=== PATIENT | female | born 1985 | race Caucasian/White ===

== ENCOUNTER 2018-04-20 21:34 | Emergency (ER) | payer OTHER ==
[~2018-04-20] VITALS: Ht 165.1 cm; Wt 122.5 kg
[2018-04-20 22:03] LABS: ABSOLUTE NEUTROPHILS 7.5 thou/uL (1.4-8.2); BASOPHILS 0.6 % (0.0-2.0); EOSINOPHILS 2.2 % (0.0-3.0); HEMATOCRIT 42.8 % (37.0-47.0); MCV 88.5 fL (80.0-100.0); MONOCYTES 7.6 % (1.0-8.0); PLATELET COUNT 374 thou/uL (150-400); POLYS 61.6 % (36.0-66.0); RBC 4.84 mil/uL (4.20-5.00); RDW 13.8 % (10.5-14.5); WBC 12.2 thou/uL (4.0-11.0)
[2018-04-20 22:09] LABS: ANION GAP 13 mmol/L (7-16); BUN 15 mg/dL (7-18); CALCIUM 10.9 mg/dL (8.5-10.1); CHLORIDE 102 mmol/L (98-107); CO2 23 mmol/L (21-32); GLUCOSE 112 mg/dL (74-106); POTASSIUM 3.2 mmol/L (3.5-5.1); SODIUM 138 mmol/L (136-145)
[2018-04-20 22:18] LABS: LIPASE 153 U/L (73-393); SGOT 21 U/L (15-37); SGPT 29 U/L (30-65); TOTAL BILIRUBIN 0.3 mg/dL (<0.1-1.0); TOTAL PROTEIN 8.2 g/dL (6.4-8.2); TROPONIN-I <0.06 ng/mL (<0.06)
[2018-04-21 01:04] LABS: URINE BILIRUBIN NEGATIVE (Negative); URINE BLOOD 3+ (Negative); URINE CLARITY CLEAR; URINE COLOR YELLOW; URINE GLUCOSE-RANDOM* NEGATIVE (Negative); URINE KETONES NEGATIVE (Negative); URINE LEUKOCYTES-REFLEX NEGATIVE (Negative); URINE NITRITE-REFLEX NEGATIVE (Negative); URINE PROTEIN (DIPSTICK) NEGATIVE (Negative); URINE UROBILINOGEN 0.2 E.U./dl (0.2-1.0)
[2018-04-21 01:16] LABS: BACTERIA-REFLEX 1-9 Few /HPF (None Seen); CALCIUM OXALATE 4-10 Moderate /LPF (None Seen); CASTS None Seen /LPF (None Seen); MUCUS 0-3 Light strn/LPF (None Seen); SQUAMOUS 0-3 Few /LPF (0-3); URINE RBC 3-10 Few /HPF (0-2); URINE WBC-REFLEX 0-5 Rare /HPF (0-5)
[2018-04-21] MEDS ORDERED: NORCO 5-325 TA1 EACH PO (02:00)
[2018-04-21 02:06] VITALS: BP 116/61
--- NOTE | 2018-04-21 19:58 | EKG ---
[place] [address] [facility] [place] [address] ELECTROCARDIOGRAM REPORT Name: NELI CLINE [id number] ������������������ Admission: 04/20/18 ������������������ Attend Phys: Discharge: 04/21/18 ������������������ Date of : 89 Report #: [id number] ����������������������������������������������������������������� [id number] THIS REPORT FOR: //name// [facility] ED Test Date: 2018-04-20 Test Time: 22:02:38 Pat Name: NELI CLINE Department: Room: Gender: F Bulk Loader: tila : 1985 Requested By: Dalton Reed Order Number: [id number] MD: Bryn Villalobos Measurements Intervals [place] Rate: 71 P: 49 IA: 168 QRS: 10 QRSD: 100 T: 30 QT: 366 QTc: 398 Interpretive Statements Sinus rhythm Baseline wander in lead(s) II,III,aVR,aVL,aVF,V1,V2,V3,V5,V6 Early transition No previous ECG available for comparison Electronically Signed On 04-21-2018 19:57:48 HOT MILL SHEAR[employer] by Bryn Villalobos [email or web address] ��������������������������������������������� <ELECTRONICALLY SIGNED> ���������������������������������������� By: Bryn Villalobos MD ��������������������������������������������� 04/21/181956 01 01 Bryn Villalobos MD /EPI
== END 2018-04-21 02:06 | disposition home or self-care (01) ==
LOC: ER 21:34
PROVIDERS: Emergency Medicine
DX: N20.0 Calculus of kidney (principal); R11.2 Nausea with vomiting, unspecified

== ENCOUNTER 2018-05-18 21:22 | Emergency (ER) | payer OTHER ==
[~2018-05-18] VITALS: Ht 165.1 cm; Wt 115.7 kg
[~2018-05-18 21:22] MED LIST: NORCO 5-325 TA1 EACH PO
[2018-05-18 21:45] LABS: URINE BILIRUBIN NEGATIVE (Negative); URINE BLOOD 3+ (Negative); URINE CLARITY CLOUDY; URINE COLOR YELLOW; URINE GLUCOSE-RANDOM* NEGATIVE (Negative); URINE KETONES NEGATIVE (Negative); URINE LEUKOCYTES-REFLEX TRACE (Negative); URINE NITRITE-REFLEX NEGATIVE (Negative); URINE PROTEIN (DIPSTICK) 2+ (Negative); URINE SPECIFIC GRAVITY >= 1.030 (1.005-1.035)
[2018-05-18] MEDS ORDERED: BUSPIRONE HCL10 MG PO (21:51)
[2018-05-18 21:53] LABS: CASTS None Seen /LPF (None Seen); CRYSTALS None Seen /LPF (None Seen); MUCUS 0-3 Light strn/LPF (None Seen); SQUAMOUS 0-3 Few /LPF (0-3); URINE RBC >20 Many /HPF (0-2); URINE WBC-REFLEX 6-15 Few /HPF (0-5)
[2018-05-19 00:14] LABS: ABSOLUTE NEUTROPHILS 8.4 thou/uL (1.4-8.2); BASOPHILS 0.4 % (0.0-2.0); EOSINOPHILS 1.3 % (0.0-3.0); HEMATOCRIT 39.9 % (37.0-47.0); HEMOGLOBIN 13.7 gm/dL (12.0-15.0); MCH 30.5 pg (26.0-34.0); MCHC 34.3 g/dL (28.0-37.0); MONOCYTES 8.4 % (1.0-8.0); PLATELET COUNT 326 thou/uL (150-400); POLYS 68.9 % (36.0-66.0); RBC 4.48 mil/uL (4.20-5.00); RDW 13.7 % (10.5-14.5); WBC 12.2 thou/uL (4.0-11.0)
[2018-05-19 00:16] LABS: CALCIUM 9.9 mg/dL (8.5-10.1); CREATININE 0.9 mg/dL (0.6-1.0); POTASSIUM 3.9 mmol/L (3.5-5.1)
[2018-05-19] MEDS ORDERED: KEFLEX500 M1 PO (01:05)
[2018-05-19] MEDS ORDERED: IBUPROFEN 800800 M1 PO (01:05)
[2018-05-19] MEDS ORDERED: ZOFRAN ODT4 MG PO (01:09)
[2018-05-19 01:35] VITALS: BP 125/95
== END 2018-05-19 01:47 | disposition home or self-care (01) ==
LOC: ER 21:22
PROVIDERS: Emergency Medicine; Nurse Practitioner Family
DX: N20.0 Calculus of kidney (principal)

== ENCOUNTER 2018-06-29 23:31 | Inpatient (IN) | payer OTHER ==
[~2018-06-29] VITALS: Ht 165.1 cm; Wt 111.8 kg
[~2018-06-29 23:31] MED LIST changes: +BUSPIRONE HCL10 MG PO; +IBUPROFEN 800800 M1 PO; +KEFLEX500 M1 PO; +ZOFRAN ODT4 MG PO
[2018-06-29 23:41] VITALS: BP 125/76
--- NOTE | 2018-06-29 23:50 | NUR ---
PATIENT STATES HAS ALOT GOING ON. STATES JUST STARTED A NEW JOB, AND WAS SUPPOSED TO BE PAID SUNDAY-DIDNT HAPPEN
[2018-06-29] MEDS ORDERED: SERTRALINE HCL50 MG PO (23:56)
[2018-06-30] VITALS (7 sets, daily range): BP systolic 120–170; BP diastolic 71–128
[2018-06-30 00:34] LABS: ICTOTEST (BILI CONFIRMATORY) Positive (Negative); URINE BILIRUBIN 2+ (Negative); URINE BLOOD 3+ (Negative); URINE CLARITY SL CLOUDY; URINE COLOR BROWN; URINE GLUCOSE-RANDOM* NEGATIVE (Negative); URINE KETONES 1+ (Negative); URINE LEUKOCYTES-REFLEX 2+ (Negative); URINE NITRITE-REFLEX NEGATIVE (Negative); URINE PROTEIN (DIPSTICK) 2+ (Negative); URINE SPECIFIC GRAVITY >= 1.030 (1.005-1.035)
[2018-06-30 00:36] LABS: AMP/METHAMP Negative (Negative); BARBITURATES Negative (Negative); BENZODIAZEPINES POSITIVE (Negative); COCAINE Negative (Negative); METHADONE Negative (Negative); OPIATES Negative (Negative); PCP Negative (Negative)
[2018-06-30 00:40] LABS: ABSOLUTE NEUTROPHILS 15.7 thou/uL (1.4-8.2); BASOPHILS 0.2 % (0.0-2.0); EOSINOPHILS 0.2 % (0.0-3.0); HEMATOCRIT 45.7 % (37.0-47.0); HEMOGLOBIN 15.1 gm/dL (12.0-15.0); LYMPHOCYTES 7.5 % (24.0-44.0); MCH 30.1 pg (26.0-34.0); MCHC 33.1 g/dL (28.0-37.0); MONOCYTES 7.7 % (1.0-8.0); PLATELET COUNT 332 thou/uL (150-400); POLYS 84.4 % (36.0-66.0); RBC 5.02 mil/uL (4.20-5.00); RDW 13.8 % (10.5-14.5); WBC 18.6 thou/uL (4.0-11.0)
[2018-06-30 00:42] LABS: HYALINE CASTS 0-3 Few /LPF (None Seen); MUCUS 4-6 Moderate strn/LPF (None Seen); SQUAMOUS 4-10 Moderate /LPF (0-3)
[2018-06-30 00:43] LABS: BACTERIA-REFLEX 1-9 Few /HPF (None Seen); CRYSTALS None Seen /LPF (None Seen); URINE RBC >20 Many /HPF (0-2); YEAST-REFLEX Present (None Seen)
[2018-06-30 00:58] LABS: ALBUMIN 5.2 g/dL (3.4-5.0); ANION GAP 18 mmol/L (7-16); BUN 26 mg/dL (7-18); CHLORIDE 103 mmol/L (98-107); CO2 18 mmol/L (21-32); CREATININE 1.4 mg/dL (0.6-1.0); GLUCOSE 104 mg/dL (74-106); POTASSIUM 3.4 mmol/L (3.5-5.1); SALICYLATE 5.2 mg/dL (2.8-20.0); SGOT 96 U/L (15-37); SGPT 59 U/L (30-65); SODIUM 139 mmol/L (136-145); TOTAL BILIRUBIN 1.2 mg/dL (<0.1-1.0); TOTAL PROTEIN 9.1 g/dL (6.4-8.2)
[2018-06-30 01:01] LABS: CALCIUM 12.4 mg/dL (8.5-10.1)
--- NOTE | 2018-06-30 01:02 | NUR ---
CRITICAL LAB RECEIVED OF CA=12.4, PHYSICIAN NOTIFIED
[2018-06-30 01:31] LABS: MAGNESIUM 1.9 mg/dL (1.8-2.4); PHOSPHORUS 2.7 mg/dL (2.5-4.9)
[2018-06-30 05:02] LABS: CALCIUM 11.4 mg/dL (8.5-10.1); CREATININE 1.2 mg/dL (0.6-1.0); POTASSIUM 3.4 mmol/L (3.5-5.1)
--- NOTE | 2018-06-30 07:56 | NUR ---
ASSUMED CARE OF PT WITH ADMIT TO THE UNIT. ABLE TO ANSWER ORIENTATION QUESTIONS BUT WOULD MAKE UNRELATED COMMENTS DURING DISCUSSIONS. DENIED HEARING/SEEING THINGS THAT WEREN'T THERE BUT WAS LOOKING AT/TALKING TO THINGS NOT THERE. VS HAVE BEEN STABLE. SITTER AT BEDSIDE. SLOW PROGRESSION TOWARDS POC GOALS THIS SHIFT.
[2018-06-30 11:09] LABS: CALCIUM IONIZED* 6.3 mg/dL (4.5-5.6)
--- NOTE | 2018-06-30 19:52 | NUR ---
ASSUMED PATIENT CARE AT 0715. PATIENT HAS BEEN HALLUCINATING ON AND OFF TODAY. 1:1. PSYCH ROUNDED ON PATIENT TODAY AND ORDERED PRN MEDICATIONS. ENDO ALSO ROUNDED ON PATIENT. CALCIUM REDRAW IN THE MORNING. PATIENT SHOWERED TODAY WITH SITTER. MULTIPLE SCABS AND BRUISES ALL OVER. PATIENT STATES THAT THEY HAVE BEEN LIVING IN THEIR CARE SINCE . PATIENT BECAME AGITATED AT SHIFT CHANGE ABOUT THEIR PHONE BEING LOST. PATIENT DID NOT COME IN WITH PHONE. OLANZAPINE IM GIVEN. IV INFILTRATED, IV TEAM TO REPLACE.
--- NOTE | 2018-06-30 22:17 | NUR ---
Patient agitated at start of shift. Agitated about location of car keys, car, cell phone and money. Keeps dislaying AH and VH. Paranoia present believing all noises are a person Belen and Ben talking about her. Patient ran into the [facility] x2 believing that there is a man with a gun in her room. Security called x2 to help de-escalate patient. Patient started to calm down around 2100, sitting in chair, talking to 1:1 sitter, apologetic, watching TV and ate 25% of dinner. Multiple bruises, scars and scratches visible to bilateral upper and lower extremities. IV to left forearm is positional and is propped on pillow at this time with IV fluids running. Patient c/o pain to abdomen and nausea after eating and requested PRN pain and nausea medication. Those were provided per MD orders. Patient resting with eyes closed in recliner at this time.
[2018-07-01 04:10] LABS: CALCIUM 11.4 mg/dL (8.5-10.1); CREATININE 1.5 mg/dL (0.6-1.0); HEMATOCRIT 40.4 % (37.0-47.0); HEMOGLOBIN 13.8 gm/dL (12.0-15.0); MAGNESIUM 1.7 mg/dL (1.8-2.4); MCH 30.6 pg (26.0-34.0); MCHC 34.2 g/dL (28.0-37.0); MCV 89.3 fL (80.0-100.0); RBC 4.52 mil/uL (4.20-5.00); RDW 13.5 % (10.5-14.5); WBC 17.9 thou/uL (4.0-11.0)
[2018-07-01 04:13] LABS: POTASSIUM 2.6 mmol/L (3.5-5.1)
[2018-07-01 04:50] VITALS: BP 162/93
--- NOTE | 2018-07-01 04:52 | NUR ---
Patient has been resting quietly since approximately 2230. Labs drawn this AM. Critical lab results received K+ 2.6. notified. Order obtained to provide KCL 20meq every hour x3 doses; repeat K+ level at 1045; Mag Ox 400 x1 now. Patient provided medication, took well whole. Vital signs assessed. Patient is going back to sleep with no s/s of agitation, hallucinations, or anxiety at this time.
--- NOTE | 2018-07-01 06:43 | NUR ---
Patient continues to sleep well in chair per her request. No s/s of hallucinations observed. Patient taking medications whole without difficulty. Patient declines needing to use the bathroom. Resident has not voided over the last 12 hours. Bladder scan completed. Shows 244cc in bladder at this time. Will report to next shift to monitor urinary output. Patient has been taking in oral fluids and IV fluids over the last 12 hours.
[2018-07-01 06:51] VITALS: BP 139/88
--- NOTE | 2018-07-01 12:55 | HC ---
[facility] [place] [address] CONSULTATION Name: NELI CLINE Room #: 354-P ADM IN M.R.#: [id number] Admission: 06/30/18 ������������������ Attend Phys: Marco Mcgill MD Discharge: ������������������ Date of : 89 Report #: [id number] THIS REPORT FOR: //name// CC: SANDEEP physician/PCP Kun Martin DATE OF SERVICE: 06/30/2018 ENDOCRINE CONSULTATION LOCATION: Room 354. Patient of Dr. Martin. SUBJECTIVE: One of multiple admissions for this 32-year-old white female with a variety of medical and psychiatric problems most of which will not be addressed by this consultation. Historically, the patient states she was diagnosed several years ago with hypercalcemia. She has a personal history of multiple renal calculi. She also has a positive family history of hypercalcemia and renal calculi in her mother, but no other known family members. There is no diagnostic information regarding her mother's hypercalcemia or other disorders. The patient has apparently had a low level of vitamin D in the past. It is not clear whether she has ever received vitamin D replacement. There is no history of a parathyroid ultrasound or sestamibi scan in the past. The patient has some limited information regarding parathyroid disease, hypercalcemia and parathyroid adenoma much of which is faulty. She is on a variety of psychotropic medications as per chart. Otherwise, she is unable to provide any historical information regarding her calcium disease or its prior evaluation. OBJECTIVE: LABORATORY DATA: Ionized calcium 6.3. Vitamin D and intact PTH are both pending. Serum calcium 11.5, creatinine 1.3, phosphorus 2.7. PHYSICAL EXAMINATION: GENERAL: Well-nourished, well-developed, obese 32-year-old white female, in no acute distress. The patient makes poor eye contact and her eyes do not focus symmetrically. She appears oriented x 3, but offers limited physical information other than very pale and doughy skin and the exogenous obesity, which is located both centrally and peripherally. The physical examination is essentially noncontributory and as per prior records. ASSESSMENT: Hypercalcemia, most likely due to hyperparathyroidism, although data is not complete at this time. This is particularly likely given the positive family history of her first-degree family member who also had hypercalcemia and renal calculi, but about whom further information is not [address] [address] CONSULTATION Name: NELI CLINE Room #: 354-P [facility] IN M.R.#: [id number] Admission: 06/30/18 ������������������ Attend Phys: Marco Mcgill MD Discharge: ������������������ Date of : 89 Report #: [id number] available. There is not a significant family history such as might be expected with multiple endocrine neoplasia syndromes. PLAN: 1. We will attempt to hydrate. The patient is already on furosemide, which would help diurese serum calcium. The patient will probably need supplementation with high dose vitamin D for loading followed by chronic daily appropriate replacement at approximately 2000 units of vitamin D3 per day. 2. We will order a sestamibi scan. If this is positive, the patient will need to be presented with the clinical data and allow her to make, if possible, an appropriate clinical decision regarding possible surgical resection. Hopefully, this could be done endoscopically as the patient is severely fearful of any type of major neck surgery at this time. Thank you very much for this consultation. I will continue to follow the patient with you for evaluation of hypercalcemia and endocrine disease. ��������������������������������������������� <ELECTRONICALLY SIGNED> ���������������������������������������� By: Levi Bobo MD ��������������������������������������������� 07/01/18 1255 1427 0127 Levi Bobo MD /nt
[2018-07-01 13:21] VITALS: BP 124/85
[2018-07-01 13:24] LABS: CALCIUM 11.4 mg/dL (8.5-10.1); CREATININE 1.5 mg/dL (0.6-1.0); POTASSIUM 3.1 mmol/L (3.5-5.1)
[2018-07-01 13:27] LABS: CALCIUM 11.7 mg/dL (8.5-10.1); CREATININE 1.5 mg/dL (0.6-1.0)
[2018-07-01 16:17] VITALS: BP 130/68
--- NOTE | 2018-07-01 17:16 | HC ---
[facility] [place] [address] CONSULTATION Name: NELI CLINE Room #: 354-P ADM IN M.R.#: [id number] Admission: 06/30/18 ������������������ Attend Phys: Marco Mcgill MD Discharge: ������������������ Date of : 89 Report #: [id number] THIS REPORT FOR: //name// CC: SANDEEP physician/PCP Kun Martin DATE OF SERVICE: 06/30/2018 CHIEF COMPLAINT: Altered mental status. HISTORY OF PRESENT ILLNESS: The patient is at least able to converse now, unable to provide a history. She says that she went to her physician, outpatient psychiatrist placed her on Zoloft. The patient at this point is irritable, angry, upset easily. Thought process is perseverative and rapid in thoughts. Thought content denies, suicidal, homicidal ideation at this point, but she also was somewhat labile with me and she said that has been markedly labile recently. She denies danger to herself or others, but again I would leave the 1:1 at least for today. The patient has been diagnosed with borderline personality disorder as well. She says the cuts on her hand are due to the poor coping styles and strategy. The patient is again not agitated. She is relatively calm except for the outburst with me, but there is some lability there that would be somewhat unpredictable, so as to keep the 1:1 sitter would be advised. PAST PSYCHIATRIC HISTORY: Bipolar disorder. MEDICAL HISTORY: She has a BMI of 41. She has elevated calcium, which is somewhat chronic. She denies drug use except for marijuana. She says that she is given Ativan p.r.n. as an outpatient. She is no longer on Seroquel, she used to be on Seroquel. She has been living in her car. She has minimal support from family. FAMILY PSYCHIATRIC HISTORY: Bipolar disorder, possibly in her mother. MENTAL STATUS EXAMINATION: female. She has cuts on her arms. She is loud. She is intrusive, angry, upset. Thought process, perseverative. Thought content, denies suicidal or homicidal ideation now. No delusions or perceptual disturbances, but she has confusion. She was misunderstanding that the 1:1 was possibly with her at a different location. Her affect is wide ranging and can be somewhat intense. Insight and judgment is improving but limited still. ASSETS: She has some understanding of her illness and willing to take medications. LIABILITIES: Severity of illness. [facility] [address] [place] [address] CONSULTATION Name: NELI CLINE Room #: 354-P [facility] IN M.R.#: [id number] Admission: 06/30/18 ������������������ Attend Phys: Marco Mcgill MD Discharge: ������������������ Date of : 89 Report #: [id number] IMPRESSION: AXIS I: Bipolar type 2 disorder. AXIS II: Borderline personality disorder. AXIS III: As above. AXIS IV: Moderate. AXIS V: Global Assessment Global Assessment function currently 50%. PLAN: Continue with the 1:1 for now, we will use Neurontin, even though she has slightly elevated creatinine level due to low dose Neurontin to see if that helps stabilize her mood and avoid Zoloft, which at this point might potentially to the hypomania, keep the 1:1 today and we will reevaluate where she had tomorrow and consider alternative treatments if necessary such as antipsychotics, but we will add a p.r.n. Zyprexa. Jules was somewhat successful. Thank you for the consultation. If you have any questions, give us call. ��������������������������������������������� <ELECTRONICALLY SIGNED> ���������������������������������������� By: Sandra Guthrie MD ��������������������������������������������� 07/01/18 1716 1349 0052 Veto Merlos MD /nt
--- NOTE | 2018-07-01 17:53 | NUR ---
ASSUMED PATIENT CARE AT 0715. PATIENT MUCH CALMER TODAY THAN YESTERDAY. PATIENT SLEEPING MOST OF THE DAY. 1:[address] PATIENT STILL HAVING VISUAL HALLUCINATIONS. K+ LOW ON REDRAW. K+ REPLACED. MORE ANXIOUS IN THE EVENING.
[2018-07-01 20:10] VITALS: BP 137/87
[2018-07-02] VITALS (7 sets, daily range): BP systolic 100–139; BP diastolic 69–91
[2018-07-02 02:05] LABS: 25-HYDROXY TOTAL 8.7 ng/mL (30.0-100.0)
[2018-07-02 06:03] LABS: HEMATOCRIT 39.4 % (37.0-47.0); HEMOGLOBIN 13.1 gm/dL (12.0-15.0); MCHC 33.3 g/dL (28.0-37.0); RBC 4.37 mil/uL (4.20-5.00); RDW 13.8 % (10.5-14.5)
--- NOTE | 2018-07-02 06:05 | NUR ---
Patient with sitter all shift. Patient stated at start of shift that she gets scared because she sometimes sees things that she knows isn't real. This RN reassured her that [facility] working with her to figure out why and slow the episodes. Patient has slept through the night and gotten up standby to the toilet and back to bed. Environment checked for safety. Patient making partial progress toward plan of care at this time.
[2018-07-02 06:20] LABS: CREATININE 1.3 mg/dL (0.6-1.0); MAGNESIUM 2.2 mg/dL (1.8-2.4); POTASSIUM 3.6 mmol/L (3.5-5.1)
--- NOTE | 2018-07-02 18:16 | NUR ---
ASSUMED PATIENT CARE AT 0715. PATIENT WOKEN BY NURSE TO BE TAKEN TO PARATHYROID SPECT SCAN, SEE RESULTS. THIS EVENING PATIENT STATED THEY HAVE NOT HAD HALLUCINATIONS TODAY BUT DID LAST NIGHT. PATIENT HAS BEEN CALM ALL DAY. PATIENT EXPRESSED FEELING EMOTIONAL AND STATED THEY WOULD LIKE TO TALK TO THEIR AUNT OR GRANDMOTHER BUT DIDN'T WANT TO BOTHER ANYONE. PSYCH IN TO SEE PATIENT THIS EVENING. CM CONSULTED FOR POSSIBLE INPATIENT PSYCH STAY.
[2018-07-03 04:00] VITALS: BP 117/74
--- NOTE | 2018-07-03 04:43 | NUR ---
Patient remained asleep most of shift. No hallucinations noted. Order given for visatril 50 mg PO TID PRN for agitation/anxiety due to patient requesting for something to help her relax. Patient fell asleep for the night shortly after scheduled meds were given so patient didn't require vistaril at the time. Patient did well without a sitter. Patient making progress toward plan of care at this time.
[2018-07-03 05:47] LABS: HEMATOCRIT 39.2 % (37.0-47.0); HEMOGLOBIN 13.1 gm/dL (12.0-15.0); MCH 30.3 pg (26.0-34.0); MCHC 33.4 g/dL (28.0-37.0); MCV 90.7 fL (80.0-100.0); RBC 4.32 mil/uL (4.20-5.00); RDW 13.9 % (10.5-14.5); WBC 10.4 thou/uL (4.0-11.0)
[2018-07-03 05:56] LABS: CALCIUM 11.1 mg/dL (8.5-10.1); CREATININE 1.3 mg/dL (0.6-1.0); MAGNESIUM 1.9 mg/dL (1.8-2.4); POTASSIUM 3.1 mmol/L (3.5-5.1)
[2018-07-03 08:03] VITALS: BP 128/91
--- NOTE | 2018-07-03 09:22 | NUR ---
Nutrition: pt admitted with hypercalcemia, AMS, UTI. Hyperparathryoidism with concern for pituitary adenoma. Psych following for depression, hallucinations. Pt seen for BMI 41, extreme class 3 obesity. No significant weight change per hx. Unsure of po intake at this time, pt sleeping soundly at time of visit. Appears well nourished. Currently on loading doses of vitamin D due to 8.7 level. Possible pending surgery. Will place as low risk at this time.
--- NOTE | 2018-07-03 09:44 | NUR ---
ASSESSMENT: CM REVIEWED CHART AND MET WITH PATIENT AT THE BEDSIDE. PT WAS ADMITTED WITH HYPERCALCEMIA/AMS/HALLUCINATIONS/UTI. PT ALSO HAS HX OF BORDERLINE PERSONALITY D/O. PT WAS ON A 1:1 DUE TO LABILE BEHAVIORS BUT THAT WAS REMOVED YESTERDAY. CM MET WITH PATIENT AT THE BEDSIDE AND SHE WAS CALM AND COOPERATIVE. PT REPORTS THAT SHE IS CURRENTLY LIVING IN HER CAR. PT REPORTS THAT SHE HAS NO INSURANCE OR PCP. CM OFFERED PATIENT PCP PROVIDER LIST INCLUDING SAFETY NET CLINICS/PACKET. PT REPORTED THAT SHE DID NOT HAVE AN OUPATIENT PSYCHIATRIST ALTHOUGH IT MENTIONED SHE DID HAVE ONE WHEN SHE SPOKE WITH PHYSICIAN. PT STATED SHE HAS BEEN TO AN INPATIENT PSYCH FACILITY IN THE PAST BUT SHE STATES SHE CANNOT RECALL WHICH HOSPITAL AND HAS BEEN ABOUT 5 YEARS. CM SPOKE WITH PATIENT AND SHE DOES NOT WANT TO GO TO AN INPATIENT PSYCHIATRIC HOSPITAL AT THIS TIME. SHE STATES SHE WANTS TO FOLLOW UP OUTPATIENT. CM PROVIDED PATIENT WITH INFORMATION ON [facility] AND [facility]. CM WILL CONTINUE TO FOLLOW TO ASSIST NEEDED.
[2018-07-03 11:57] VITALS: BP 115/88
--- NOTE | 2018-07-03 14:58 | NUR ---
ON-GOING ASSESSMENT: CM SPOKE WITH DR. RAY THIS AM WHO STATES SINCE PT IS DENYING SI/HI AND CURRENTLY COOPERATIVE AND UNLESS THERE IS A MAJOR CHANGE WILL LIKELY NO REQUIRE INPATIENT PSYCH. CM MET WITH PATIENT AND DISCUSSED HER DISCHARGE PLAN. SHE STATES SHE PLANNED ON GOING BACK TO LIVING IN HER CAR. SHE STATES THINGS ARE SUCH A BLURR WHEN SHE CAME IN AND HAS A HARD TIME REMEMBERING WHAT HAPPENED. PT REPORTS SHE THINKS HER CAR IS AT A [facility] CALLED [facility]. PT STATES SHE HAS A BLACK JORDAN ESCAPE. CM REACHED OUT TO THE YAZDANISM [phone] AND SPOKE WITH PAT WHO STATES SHE HAD HER DIRECTOR STRATEGIC ACCOUNT MANAGEMENT CHECK THEIR LOT AND THERE IS A BLACK JORDAN ESCAPE WITH TAGS WHICH PATIENT REPORTS SHE HAS. HOWEVER, PATIENT STATES SHE HAS NO IDEA WHERE HER CAR KEYS ARE OR HER CELL PHONE. CM ASKED IF PATIENT HAD SPOKEN WITH ANY FAMILY AND SHE STATED NO THEY DO NOT CARE ABOUT HER AND SHE DID NOT WANT TO REACH OUT TO THEM. CM DISCUSSED SHE MAY WANT TO REACH OUT TO THEM FOR HELP AT DISCHARGE WOULD ONLY BE ABLE TO OFFER HOMELESS USP RESOURCES. CM WILL CONTINUE TO FOLLOW TO ASSIST NEEDED.
[2018-07-03 17:15] VITALS: BP 133/83
--- NOTE | 2018-07-03 17:28 | NUR ---
ASSUMED CARE OF PT AT 0700. PATIENT HAS BEEN DROWSY AND SLEEPING THROUGHOUT DAY. PATIENT PERIODICALLY WAKES FOR MEALS, REPOSITIONING, AND UPON VERBAL STIMULI. PATIENT HAS EXPRESSED THAT SHE IS FEELING BETTER AND NOTICES THAT HER APPETITE IS RETURNING. PATIENT HAS EATEN FULL MEANS PLUS MULTIPLE SNACKS TODAY. PT HAS BEEN LOW NSR ON TELE. NS RUNNING AT 125mL/hr. DENIES ANY HALLUCINATIONS. PER REBECCA IN , DR. RAY HAS OKAY'D PT FOR DC BUT DC LOCATION STILL UNCLEAR. PT IS MAKING PROGRESS TOWARD POC GOALS. WILL CONTINUE TO MONITOR AND ASSESS.
[2018-07-04 04:15] VITALS: BP 136/91
[2018-07-04 05:31] LABS: HEMATOCRIT 38.7 % (37.0-47.0); HEMOGLOBIN 13.1 gm/dL (12.0-15.0); MCH 30.6 pg (26.0-34.0); MCHC 33.8 g/dL (28.0-37.0); MCV 90.6 fL (80.0-100.0); RBC 4.27 mil/uL (4.20-5.00); RDW 13.4 % (10.5-14.5); WBC 11.7 thou/uL (4.0-11.0)
[2018-07-04 05:39] LABS: CALCIUM 11.2 mg/dL (8.5-10.1); CREATININE 1.3 mg/dL (0.6-1.0); MAGNESIUM 1.7 mg/dL (1.8-2.4); POTASSIUM 3.5 mmol/L (3.5-5.1)
--- NOTE | 2018-07-04 06:05 | NUR ---
ASSUMED CARE OF PT AT 1900. A&Ox4, COOPERATIVE. VS STABLE. STARTED CRYING, STATED SHE HAD ANXIETY AND MISSED HER MOTHER. THERAPEUTIC COMMUNICATION AND COMFORT MEASURES OF WARM BLANKET, SNACK PROVIDED. STEADY GAIT TO BR. REPORT GIVEN TO OTHER RN AT 2100 FOR CARE DURING REST OF THE SHIFT.
--- NOTE | 2018-07-04 06:11 | NUR ---
Took over care of pt. around 2200. She has slept well during the night. Denies any pain. No suicidal ideation or hallucinations. Calm and cooperative. Up with SBA , steady on her feet. Making progress towards care plan goals.
[2018-07-04 07:38] VITALS: BP 139/96
[2018-07-04 11:36] VITALS: BP 131/75
--- NOTE | 2018-07-04 16:14 | NUR ---
on-going assessment: CM REVIEWED CHART AND MET WITH PATIENT. CM REACHED OUT TO THE FIRST JAINISM OF THE [facility] TO SEE IF THE SPANISH TEACHER COULD CHECK TO SEE IF THEY SEE HER KEYS INSIDE HER CAR PATIENT HAS NO RECOLLECTION WHERE HER CELL PHONE OR KEYS ARE. CM SPOKE WITH TSERING AND PROPRETY DIRECTOR CARDIOLOGY DID FIND HER KEYS IN HER CAR AND STATING THE CAR IS UNLOCKED AND WILL NO LOCK. TSERING STATING THE OFFICE CLOSES TODAY AT 4 AND IS CLOSED TOMORROW AND THE WEEKNDS SO IF SOMEONE NEEDS TO GET HER KEYS THEY MUST GET THEM BEFORE 4. CM REACHED OUT TO CM DIRECTOR TO SEE IF SECURIY COULD GO CIVIL CELEBRANT KEYS. SECURITY IS UNAVAILABE AT THIS TIME AND CM WENT TO THE OFFICE TO CIVIL CELEBRANT THE KEYS. CM RETURNED TO THE HOSPITAL AND NOTIFIED PATIENT THAT HER KEYS WERE FOUND. PT WAS TEARFUL AND HAPPY THINGS WERE FOUND. SHE ASKED IF HER CELL PHONE WAS IN THERE. CM NOTIFIED PT SPANISH TEACHER DID NOT WANT TO GO THROUGH HER THINGS AND JUST GOT HER KEYS. CM ASKED IF PATIENT WANTED TO REACH OUT TO ANY FAMILY TO SEE IF THEY COULD HELP WITH SITUATION. PT STATING HER STEP-FATHER IS A AIRCRAFT ENGINE CYLINDER MECHANIC AND WORKING AND USUALLY NOT BACK UNTIL THE WEEKENDS. PT STATING SHE HAS AN AUNT RINA [phone] WHO SHE STATES IS SUPPORTIVE. PT ASKING CM TO REACH OUT TO HER AND STATES SHE IS OK WITH HER KNOWING SHE IS HERE AND INFORMATION ON WHAT IS GOING ON AND IF SHE WOULD BE WILLING TO GO CHECK OUT HER CAR FOR HER WALLET/CELL PHONE. PT STATING SHE WOULD BE WILLING TO LET HER COME GET HER KEYS AND HELP WITH HER CAR IF SHE WAS WILLING. CM REACHED OUT TO PATIENTS AUNT RINA WHO STATES SHE AND HER ARE MORE THEN HAPPY TO TRY AND FIGURE OUT WHAT IS GOING ON WITH HER CAR OR IF SHE NEEDS A NEW BATTERY. RINA STATING SHE IS WORKING AND LIVES IN [place] BUT IS WILLING TO COME TO THE HOSPITAL TONIGHT TO GET HER CAR KEYS AND TRY AND FIND HER BELONGINGS AND WHAT IS GOING ON WITH HER CAR. CM LEFT CAR KEYS WITH BEDSIDE RN. CM NOTIFIED PATIENT AND IS VERY THANKFUL. CM WILL CONTINUE TO FOLLOW.
--- NOTE | 2018-07-04 16:29 | NUR ---
Patient's vehicle marroquin was sealed in an envelope and sent down to security. Patient signed and is aware. Patient provided with copy of item sent to security. Additional copy in chart.
--- NOTE | 2018-07-04 17:21 | NUR ---
ASSUMED CARE OF PT AT 0700. PT IS A&Ox4. PT EXPRESSED THAT SHE IS HAVING INCREASED ANXIETY R/T UPCOMING D/C AND THE FEAR SHE HAS FROM NOT KNOWING WHAT SHE IS GOING TO DO/WHAT HER PLAN IS/WHERE HER STUFF IS LOCATED. SPOKE AT LENGTH WITH THE PATIENT, PROVIDING THERAPEUTC COMMUNICATION. ENCOURAGED PT TO FOCUS ON ONE THING AT A TIME. PATIENT DENIED PAIN AND HAS DENIED HALLUCINATIONS. PT SCHEDULED FOR PARATHYROID US. NO PARATHYROID MASS IDENTIFIED. PT HAS BEEN EMOTIONAL AT VARIOUS TIME DURING DAY, RECOUNTING LOSS OF MOM AND LACK OF FAMILIAL SUPPORT. PT'S MG AND CA REMAIN OUTSIDE OF NORMAL LIMITS AND HAVE BEEN TREATED PER PHYSICIAN ORDERS. PT IS MAKING PROGRESS TOWARD POC GOALS. WILL CONTINUE TO MONITOR AND ASSESS.
[2018-07-04 19:43] VITALS: BP 120/73
[2018-07-05 04:15] VITALS: BP 116/70
--- NOTE | 2018-07-05 04:43 | NUR ---
Pt. feeling anxious at beginning of shift due to her current situation. She requested to take HS meds early so she can rest. Family members visited to give her update on her car. She slept well during the night. Episode of being agitated when she first woke up this am but easily calm down. No suicidal ideation or hallucinations. Voided per bathroom. Making progress towards care plan goals.
[2018-07-05 07:47] VITALS: BP 142/87
[2018-07-05 08:33] LABS: CREATININE 1.2 mg/dL (0.6-1.0); MAGNESIUM 1.7 mg/dL (1.8-2.4); POTASSIUM 3.9 mmol/L (3.5-5.1)
[2018-07-05 11:17] VITALS: BP 146/84
--- NOTE | 2018-07-05 11:30 | NUR ---
AV AND TELE DISCONTINUED, [facility]
--- NOTE | 2018-07-05 16:12 | NUR ---
on-going assessment: ON-GOING ASSESSMENT. ATTENDING SUGGESTING TO TRANSFER PATIENT TO ANOTHER HOSPITAL WITH AN ENT SURGEON. CM MET WITH PATIENT AT THE BEDSIDE TO DISCUSS TRANSFER AND HOSPITALS OF PREFERENCE. PT STATING SHE DOES NOT WANT TO HAVE SURGERY AND THAT IS NOT SOMETHING SHE WANTS TO DO AT THIS TIME. CM NOTIFIED ATTENDING THAT CM DISCUSSED TRANSFERING PATIENT AND SHE IS NOT WANTING SURGERY OR TO TRANSFER TO ANOTHER HOSPITAL DUE TO NOT WANTING IT. CM DISCUSSED WITH ATTENDING AND PT IS POSSIBLE DISCHARGE OVER THE WEEKEND. PT LIVES IN HER CAR WHICH IS LOCATED AT [facility] OF THE [address] [facility] [address]. SHE STATES HER AUNT RINA [phone] AND UNCLE CAME TO HOSPITAL LAST NIGHT TO GET HER KEYS AND SEE IF THEY COULD FIND OUT WHAT WAS WRONG WITH HER CAR AND PT REPORTS THEY WERE UNABLE TO FIND OUT WHAT IS WRONG TO WHY IT IS NOT STARTING. CM ASKED IF CM COULD REACH OUT TO HER AUNT TODAY SHE STATED NO SHE DID NOT WANT CM TO CONTACT ANY FAMILY. PT REPORTS HER GRANDMOTHER WAS HERE THIS MORNING. CM ASKED PT IF SHE IS ABLE TO STAY WITH ANY FAMILY MEMBERS AT DISCHARGE POSSIBLY HER AUNT, GRANDMOTHER, OR STEPFATHER SHE PREVIOUS MENTIONED. SHE STATED SHE DID NOT WANT TO DO THAT AND SHE WANTS TO RETURN TO HER CAR WHERE SHE WAS PRIOR. CM DISCUSSED CONCERN DUE TO HER CAR NOT WORKING AND HER NOT HAVING A CELL PHONE TO CONTACT PEOPLE. PT STATED SHE WOULD FIGURE IT OUT AND HAS HER WALLET NOW WITH HER CREDIT CARDS AND HER CAR KEYS. CM OFFERED TO REACH OUT TO ANY FAMILY AND SHE STATED SHE DID NOT WANT THEM CONTACTED TODAY AND SHE WANTS TO GO BACK TO HER CAR. CM OFFERED PATIENT HOMELESS PENITENTIARY RESOURCES INCLUDING HOMELESS PENITENTIARY HOTLINE [phone]. PT STATING SHE HAD BEEN TO [place] BEFORE AND NEVER WANTS TO GO BACK TO A HOMELESS PENITENTIARY. CM ALSO OFFERED PATIENT CRISIS HOTLINE NUMBERS, INPATIENT PSYCHIATRIC FACILITIES, AND SAFETY NET CLINICS. PT HAS BEEN CLEARED BY PSYCHIATRIST THAT SHE DOES NOT NEED INPATIENT PSYCH AND THAT SHE HAS DECISION MAKING CAPACITY. PT CONTINUES TO STATE SHE WANTS TO DISCHARGE TO HER CAR ALTHOUGH OFFERED OTHER RESOURCES. IF PATIENT IS CLEARED TO DISCHARGE OVER THE WEEKEND A CAB VOUCHER IS ON THE FRONT OF THE CHART BUT THE ADDRESS OF WHERE SHE CHOOSES TO GO WILL NEED TO BE COMPLETED. IF SHE RETURNS TO HER CAR THE ADDRESS IS LISTED ABOVE.
[2018-07-05 16:15] VITALS: BP 148/81
--- NOTE | 2018-07-05 16:52 | NUR ---
PT STAYED IN ROOM ALL OF SHIFT. BECAME UPSET AFTER TALKING TALKING TO SW ABOUT SITUATUION. WAS ABLE TO CALM PT DOWN BY LISTENING AND GIVING SUPPORTIVE ADVICE. REPLACED MG+ IV TODAY AND PT TOLERATED WELL, WILL CONTINUE TO ASSESS.
[2018-07-05 19:22] VITALS: BP 150/87
[2018-07-06 03:42] VITALS: BP 130/96
--- NOTE | 2018-07-06 04:56 | NUR ---
Patient slept most of shift. Patient provided with phone because she stated she needed to call her boss at work. Patient environment safe. Hourly rounding completed. Therapeutic communication and eye contact with patient. No acute changes. No hallucinations or agitation episodes. Progress made toward plan of care goals.
[2018-07-06 06:21] LABS: HEMATOCRIT 37.1 % (37.0-47.0); HEMOGLOBIN 12.7 gm/dL (12.0-15.0); MCHC 34.1 g/dL (28.0-37.0); MCV 90.9 fL (80.0-100.0); RBC 4.09 mil/uL (4.20-5.00); RDW 13.4 % (10.5-14.5); WBC 18.2 thou/uL (4.0-11.0)
[2018-07-06 06:25] LABS: CALCIUM 10.8 mg/dL (8.5-10.1); CREATININE 1.2 mg/dL (0.6-1.0); MAGNESIUM 2.2 mg/dL (1.8-2.4); POTASSIUM 3.6 mmol/L (3.5-5.1)
--- NOTE | 2018-07-06 06:40 | NUR ---
Patient pulled out IV this AM. ROGER Mascorro notified of agitation episode and that patient doesn't want the IV. Fluids dc'd. Hydrocortisone changed from IV to PO. Patient notified of the orders changed, but to make sure she is drinking plenty of fluids since she no longer has the normal saline infusing. Will continue to monitor.
[2018-07-06 07:34] VITALS: BP 142/92
--- NOTE | 2018-07-06 10:12 | NUR ---
ASSUMED CARES AT 0700. PT SLEEPY, ORIENTED*4. C/O MID BACK PAIN, NOC NURSE ADMINISTERED PAIN MED AND PT STATED THAT THE PAIN WAS INMPROVING. VITALS REMAIN STABLE. LS CLEAR, O2 SATS >92% ON RA. SINUS BRADYCARDIA (HR LOW TO HIGH 40'S WHEN ASLEEP). BS ACTIVE *4, ABDOMEN SOFT AND OBESE. SKIN REMAINS INTACT, MILD BRUISING IN BLE. PT DENIES HALLUCINATIONS. ATE HER MEAL WELL THIS AM. UP AD TONO. Q1H VISUAL CHECKS. CALL LIGHT WITHIN REACH
[2018-07-06 11:20] VITALS: BP 139/99
[2018-07-06 17:00] VITALS: BP 146/86
[2018-07-06 19:46] VITALS: BP 145/89
[2018-07-07 05:03] VITALS: BP 152/89
--- NOTE | 2018-07-07 05:28 | NUR ---
ASSUMED CARE OF PT AT 1900. A&Ox4, SB ON TELE, HR DOWN TO 35 BUT RETURNS TO 40-50s QUICKLY. DENIED PAIN AND RESP DISTRESS. STATED SHE IS GETTING STIR CRAZY AND IS READY TO GO HOME. ABLE TO SLEEP MOST OF THIS SHIFT. PROGRESSING WELL TOWARDS POC GOALS.
[2018-07-07 07:54] VITALS: BP 157/89
[2018-07-07 11:46] VITALS: BP 128/75
[2018-07-07 16:53] VITALS: BP 133/72
--- NOTE | 2018-07-07 18:09 | NUR ---
NO CHANGE ON THIS SHIFT. PROGRESSING TOWARDS POC GOALS.
[2018-07-07 20:08] VITALS: BP 148/79
--- NOTE | 2018-07-08 03:44 | NUR ---
No acute changes. Patient ambulated in the halls before bed. Hydrocodone given once for mid back pain due to request of something stronger than tylenol. Patient still SB in the 40's-50's when sleeping. Patient is very hopeful that she will be discharged today. Progress made toward plan of care goals.
[2018-07-08 04:18] VITALS: BP 132/74
[2018-07-08 06:06] LABS: HEMATOCRIT 38.5 % (37.0-47.0); HEMOGLOBIN 12.9 gm/dL (12.0-15.0); MCH 30.4 pg (26.0-34.0); MCHC 33.6 g/dL (28.0-37.0); MCV 90.3 fL (80.0-100.0); RBC 4.26 mil/uL (4.20-5.00); RDW 13.4 % (10.5-14.5); WBC 19.1 thou/uL (4.0-11.0)
[2018-07-08 06:23] LABS: CALCIUM 11.1 mg/dL (8.5-10.1); CREATININE 1.3 mg/dL (0.6-1.0); MAGNESIUM 2.2 mg/dL (1.8-2.4); POTASSIUM 3.7 mmol/L (3.5-5.1)
[2018-07-08 07:49] VITALS: BP 141/87
--- NOTE | 2018-07-08 08:28 | NUR ---
on-going assessment: [facility] REVIEWED CHART AND PER ATTENDING PATIENT IS NOW AGREEABLE FOR POSSIBLE PARATHYROIECTOMY AND WOULD LIKE TO LOOK INTO TRANSFERING TO . [facility] REACHED THE [facility] AT [phone] AND SPOKE WITH ANN. SHE REQUESTED WE FAX REFERRAL TO THEIR FAX [phone]. [facility] FAXED REFERRAL FOR THEM TO REVIEW AND PROVIDED THEM WITH DR. JOHN PATEL. CM WAITING TO HEAR BACK. DIRECT CONTACT FOR ANN AT IS [phone].
[2018-07-08 11:31] VITALS: BP 121/75
--- NOTE | 2018-07-08 13:24 | NUR ---
PT ALERT AND ORIENTED TIMES FOUR. VSS, 98%RA. PT DENIES PAIN/SOA. PT TOLERATES MEDS AND MEALS. PT UP AB TONO STEADY GAIT. PT PROGRESSING TOWRADS POC GOALS.
[2018-07-08 14:10] LABS: ANTI-DNA SCREEN 1 IU/mL (0-9); ANTI-RNP <0.2 AI (0.0-0.9)
--- NOTE | 2018-07-08 15:03 | NUR ---
on-going assessment: cm met with bedside rn. PT LEFT AMA. BEDSIDE RN REPORTS THAT HER FAMILY HAD BROUGHT HER CAR HER AND WAS NOW WORKING.
[2018-07-08 21:08] LABS: ANA INTERPRETATION Negative (())
== END 2018-07-08 12:58 | disposition left against medical advice (07) | DRG 640 ==
LOC: ER 23:31 → EROBS 06-30 01:46 → 3W 06-30 01:46
PROVIDERS: Emergency Medicine; Internal Medicine Endocrinology, Diabetes & Metabolism; Internal Medicine Geriatric Medicine; Internal Medicine Rheumatology; Nurse Practitioner Family; ADMIT Internal Medicine
DX: E83.52 Hypercalcemia (principal); G93.41 Metabolic encephalopathy; N39.0 Urinary tract infection, site not specified; E87.2 Acidosis; F31.81 Bipolar II disorder; N17.9 Acute kidney failure, unspecified; E21.3 Hyperparathyroidism, unspecified; E86.0 Dehydration; N28.9 Disorder of kidney and ureter, unspecified; F43.10 Post-traumatic stress disorder, unspecified; F41.9 Anxiety disorder, unspecified; F60.3 Borderline personality disorder; F17.210 Nicotine dependence, cigarettes, uncomplicated; E87.6 Hypokalemia; E83.42 Hypomagnesemia; M35.9 Systemic involvement of connective tissue, unspecified; Z53.21 Procedure and treatment not carried out due to patient leaving prior to being seen by health care provider; Z90.49 Acquired absence of other specified parts of digestive tract; Z87.442 Personal history of urinary calculi
CPT/HCPCS: 10879

== ENCOUNTER 2018-10-23 12:19 | Emergency (ER) | payer OTHER ==
[~2018-10-23] VITALS: Ht 165.1 cm; Wt 108.9 kg
[~2018-10-23 12:19] MED LIST changes: +SERTRALINE HCL50 MG PO
[2018-10-23 12:50] LABS: URINE BLOOD 3+ (Negative); URINE GLUCOSE-RANDOM* NEGATIVE (Negative); URINE KETONES NEGATIVE (Negative); URINE PROTEIN (DIPSTICK) 3+ (Negative)
[2018-10-23 12:53] LABS: ICTOTEST (BILI CONFIRMATORY) Negative (Negative); URINE BILIRUBIN NEGATIVE (Negative); URINE CLARITY TURBID; URINE COLOR RED; URINE LEUKOCYTES-REFLEX 3+ (Negative); URINE NITRITE-REFLEX POSITIVE (Negative)
[2018-10-23 13:00] LABS: CASTS None Seen /LPF (None Seen); SQUAMOUS >10 Many /LPF (0-3)
[2018-10-23 13:10] LABS: BACTERIA-REFLEX 1-9 Few /HPF (None Seen); CRYSTALS None Seen /LPF (None Seen); URINE RBC >20 Many /HPF (0-2)
[2018-10-23 13:19] LABS: ABSOLUTE NEUTROPHILS 2.4 thou/uL (1.4-8.2); BASOPHILS 0.6 % (0.0-2.0); EOSINOPHILS 1.5 % (0.0-3.0); HEMATOCRIT 33.6 % (37.0-47.0); HEMOGLOBIN 11.3 gm/dL (12.0-15.0); MCH 30.4 pg (26.0-34.0); MCHC 33.6 g/dL (28.0-37.0); MCV 90.4 fL (80.0-100.0); MONOCYTES 9.9 % (1.0-8.0); PLATELET COUNT 296 thou/uL (150-400); RBC 3.72 mil/uL (4.20-5.00); RDW 13.1 % (10.5-14.5)
[2018-10-23 13:29] LABS: CALCIUM 10.3 mg/dL (8.5-10.1); CREATININE 0.9 mg/dL (0.6-1.0); POTASSIUM 3.6 mmol/L (3.5-5.1)
[2018-10-23 13:35] LABS: ALBUMIN 3.5 g/dL (3.4-5.0); TOTAL BILIRUBIN 0.3 mg/dL (<0.1-1.0); TOTAL PROTEIN 7.7 g/dL (6.4-8.2)
[2018-10-23] MEDS ORDERED: BACTRIM DS TAB1 EACH PO (16:16)
[2018-10-23 16:25] VITALS: BP 136/82
== END 2018-10-23 16:18 | disposition home or self-care (01) ==
LOC: ER 12:19
PROVIDERS: Physician Assistant
DX: N39.0 Urinary tract infection, site not specified (principal); F17.210 Nicotine dependence, cigarettes, uncomplicated; F31.9 Bipolar disorder, unspecified; F41.9 Anxiety disorder, unspecified; Z90.89 Acquired absence of other organs; Z90.49 Acquired absence of other specified parts of digestive tract; Z87.442 Personal history of urinary calculi

== ENCOUNTER 2018-10-23 19:13 | Emergency (ER) | payer OTHER ==
[~2018-10-23] VITALS: Ht 165.1 cm; Wt 108.9 kg
[~2018-10-23 19:13] MED LIST changes: +BACTRIM DS TAB1 EACH PO
[2018-10-23 20:43] LABS: ABSOLUTE NEUTROPHILS 2.3 thou/uL (1.4-8.2); BASOPHILS 0.6 % (0.0-2.0); EOSINOPHILS 2.5 % (0.0-3.0); HEMATOCRIT 32.3 % (37.0-47.0); HEMOGLOBIN 10.9 gm/dL (12.0-15.0); LYMPHOCYTES 36.8 % (24.0-44.0); MCH 30.6 pg (26.0-34.0); MCHC 33.8 g/dL (28.0-37.0); MCV 90.4 fL (80.0-100.0); MONOCYTES 10.8 % (1.0-8.0); PLATELET COUNT 295 thou/uL (150-400); POLYS 49.3 % (36.0-66.0); RBC 3.58 mil/uL (4.20-5.00); RDW 13.5 % (10.5-14.5); WBC 4.6 thou/uL (4.0-11.0)
[2018-10-23 20:52] LABS: POTASSIUM 3.5 mmol/L (3.5-5.1); SALICYLATE 2.7 mg/dL (2.8-20.0)
[2018-10-23 21:34] LABS: AMP/METHAMP Negative (Negative); BARBITURATES Negative (Negative); BENZODIAZEPINES Negative (Negative); COCAINE Negative (Negative); METHADONE Negative (Negative); OPIATES POSITIVE (Negative); PCP Negative (Negative)
--- NOTE | 2018-10-24 08:29 | EKG ---
[address] [place] [address] ELECTROCARDIOGRAM REPORT Name: SONNELI [facility] [id number] Admission: 10/23/18 Attend Phys: Discharge: Date of : 89 Report #: [id number] THIS REPORT FOR: //name// [facility] ED Test Date: 2018-10-23 Test Time: 20:52:27 Pat Name: NELI CLINE Department: Room: Gender: F [employer] Marker: KARRIE : 1985 Requested By: Emily Morris Order Number: [id number] MD: Harmeet Ling Measurements Intervals [place] Rate: 72 P: 34 [place]: 181 QRS: -16 QRSD: 95 T: 11 QT: 399 QTc: 437 Interpretive Statements Sinus rhythm Small inferior Q waves Compared to ECG 04/20/2018 22:02:38 Small inferior Q waves are now present Electronically Signed On 10-24-2018 8:29:02 CDT by Harmeet Ling [email or web address] <ELECTRONICALLY SIGNED> By: Harmeet Ling MD, [facility] 10/24/18828 51 51 Harmeet Ling MD, FACC /EPI
[2018-10-24 13:04] VITALS: BP 115/69
== END 2018-10-24 13:04 | disposition still patient (30) ==
LOC: ER 19:13
PROVIDERS: Student in an Organized Health Care Education/Training Program
DX: R45.851 Suicidal ideations (principal); F41.9 Anxiety disorder, unspecified; F17.210 Nicotine dependence, cigarettes, uncomplicated; F31.9 Bipolar disorder, unspecified; Z90.89 Acquired absence of other organs; Z87.442 Personal history of urinary calculi; Z90.49 Acquired absence of other specified parts of digestive tract

== ENCOUNTER 2019-08-28 17:47 | Emergency (ER) | payer OTHER ==
[~2019-08-28] VITALS: Ht 162.6 cm; Wt 108.9 kg
[2019-08-28 18:23] LABS: URINE BLOOD 3+ (Negative); URINE COLOR YELLOW; URINE GLUCOSE-RANDOM* NEGATIVE (Negative); URINE KETONES TRACE (Negative); URINE LEUKOCYTES-REFLEX TRACE (Negative); URINE NITRITE-REFLEX NEGATIVE (Negative); URINE PROTEIN (DIPSTICK) 2+ (Negative); URINE SPECIFIC GRAVITY >= 1.030 (1.005-1.035)
[2019-08-28 18:27] LABS: URINE CLARITY HAZY
[2019-08-28 18:28] LABS: ICTOTEST (BILI CONFIRMATORY) Negative (Negative); URINE BILIRUBIN NEGATIVE (Negative)
[2019-08-28 18:46] LABS: CASTS None Seen /LPF (None Seen); SQUAMOUS 0-3 Few /LPF (0-3); URINE RBC >20 Many /HPF (0-2); URINE WBC-REFLEX 0-5 Rare /HPF (0-5)
[2019-08-28 18:47] LABS: CALCIUM OXALATE 0-3 Few /LPF (None Seen)
[2019-08-28 19:39] LABS: ABSOLUTE NEUTROPHILS 5.5 thou/uL (1.4-8.2); BASOPHILS 0.6 % (0.0-2.0); EOSINOPHILS 1.6 % (0.0-3.0); LYMPHOCYTES 25.1 % (24.0-44.0); MCH 27.8 pg (26.0-34.0); MCHC 33.4 g/dL (28.0-37.0); MCV 83.4 fL (80.0-100.0); MONOCYTES 7.1 % (1.0-8.0); PLATELET COUNT 366 thou/uL (150-400); POLYS 65.6 % (36.0-66.0); RBC 4.67 mil/uL (4.20-5.00); RDW 16.8 % (10.5-14.5); WBC 8.4 thou/uL (4.0-11.0)
[2019-08-28 19:45] LABS: CALCIUM 10.3 mg/dL (8.5-10.1); CREATININE 1.1 mg/dL (0.6-1.0); POTASSIUM 3.4 mmol/L (3.5-5.1)
[2019-08-28 19:51] LABS: ALBUMIN 3.4 g/dL (3.4-5.0); TOTAL BILIRUBIN 0.3 mg/dL (0.2-1.0); TOTAL PROTEIN 7.4 g/dL (6.4-8.2)
[2019-08-28] MEDS ORDERED: ZOFRAN ODT4 MG PO (20:02)
[2019-08-28 20:11] VITALS: BP 136/76
== END 2019-08-28 20:40 | disposition home or self-care (01) ==
LOC: ER 17:47
PROVIDERS: Emergency Medicine; Physician Assistant
DX: R11.2 Nausea with vomiting, unspecified (principal); R19.7 Diarrhea, unspecified; M54.9 Dorsalgia, unspecified; R10.9 Unspecified abdominal pain; R30.0 Dysuria; R42 Dizziness and giddiness; E21.3 Hyperparathyroidism, unspecified; F31.9 Bipolar disorder, unspecified; F41.9 Anxiety disorder, unspecified; F17.210 Nicotine dependence, cigarettes, uncomplicated; Z87.442 Personal history of urinary calculi; Z90.89 Acquired absence of other organs; Z90.49 Acquired absence of other specified parts of digestive tract

== ENCOUNTER 2020-04-30 15:48 | Inpatient (IN) | payer OTHER ==
[~2020-04-30] VITALS: Ht 162.6 cm; Wt 123.8 kg
--- NOTE | ~2020-04-30 | P ---
[facility] [place] [address] PROCEDURE REPORT Name: NELI CLINE Room #: 219-P ADM IN M.R.#: [id number] Admission: 04/30/20 Attend Phys: Jose Juan Otto MD Discharge: Date of : 89 Report #: [id number] THIS REPORT FOR: cc: FAM - No family physician/PCP FAM - No family physician/PCP ~ DATE OF SERVICE: 05/04/2020 PROCEDURE PERFORMED: Upper endoscopy with biopsies. HISTORY OF PRESENT ILLNESS: The patient is a 34-year-old female who was admitted with right flank pain and was noted to have elevated liver function test. She has had a previous laparoscopic cholecystectomy. She underwent a CT scan of the abdomen and pelvis on 04/30/2020 showing possible 6 cm mass arising from the distal stomach extending up to the previous region of the gallbladder. Difficult to separate liver and stomach from this mass, otherwise essentially negative. An ultrasound of the abdomen was also performed on 04/30/2020, which showed gallbladder surgically absent. No significant bile duct dilation. No other abnormalities were noted. In reviewing this with the radiologist on CT findings, this may actually represent possible food within the antrum as well. Therefore, the plan is for upper endoscopy. DESCRIPTION OF PROCEDURE: The risks and benefits of the procedure were explained to the patient, those risks including but not limited to bleeding, perforation and the risk of sedation. She understood these risks and gave informed consent. Sedation was given using propofol per anesthesia. Next, using a standard Olympus upper endoscope, the scope was placed in the patient's mouth and advanced under direct vision through the esophagus, stomach and into the second portion of the duodenum. The larynx is normal in appearance. The esophagus was normal throughout. The GE junction was normal. Overall, the gastric mucosa showed mild gastritis in the body and antrum. No masses were noted. No ulcerations, no erosions, no evidence of submucosal masses or abnormalities were noted. Biopsies were obtained to rule out H. pylori. The pylorus was normal and patent. The duodenal bulb, first and second portion were all normal. The scope was then withdrawn and the procedure terminated. The patient tolerated the procedure well. IMPRESSION: 1. Mild gastritis. 2. No evidence of mass lesion on upper endoscopy today or submucosal mass. RECOMMENDATIONS: 1. Await biopsy results. 2. We will discontinue Pepcid and start PPI therapy. 3. Further liver lab workup is underway at this time and pending. Her liver [address] [address] PROCEDURE REPORT Name: NELI CLINE Room #: 219-P [facility] IN M.R.#: [id number] Admission: 04/30/20 Attend Phys: Jose Juan Otto MD Discharge: Date of : 89 Report #: [id number] function tests are improving. Plan is to advance diet today if tolerated. Possibly discharge home today or tomorrow. Thank you for allowing me to participate in her care. By: 1316 1409 /nt
[~2020-04-30 15:48] MED LIST changes: +LATUDA80 MG PO; +TRAZODONE HCL50 MG PO; +ZOLOFT100 MG PO
[2020-04-30 15:50] VITALS: BP 121/76
[2020-04-30 16:24] LABS: URINE BILIRUBIN 1+ (Negative); URINE BLOOD 3+ (Negative); URINE CLARITY TURBID; URINE COLOR BROWN; URINE GLUCOSE-RANDOM* NEGATIVE (Negative); URINE KETONES NEGATIVE (Negative); URINE LEUKOCYTES-REFLEX TRACE (Negative); URINE NITRITE-REFLEX POSITIVE (Negative); URINE PROTEIN (DIPSTICK) 2+ (Negative); URINE SPECIFIC GRAVITY 1.025 (1.005-1.035)
[2020-04-30 16:25] LABS: ICTOTEST (BILI CONFIRMATORY) Positive (Negative)
[2020-04-30] MEDS ORDERED: TRAMADOL 50 MG50 MG PO (16:27)
[2020-04-30] MEDS ORDERED: CEFDINIR300 MG PO (16:30)
[2020-04-30 16:32] LABS: BACTERIA-REFLEX 1-9 Few /HPF (None Seen); SQUAMOUS 0-3 Few /LPF (0-3); URINE RBC >20 Many /HPF (0-2); URINE WBC-REFLEX 6-15 Few /HPF (0-5)
[2020-04-30 16:33] LABS: CASTS None Seen /LPF (None Seen); CRYSTALS None Seen /LPF (None Seen)
[2020-04-30 16:46] LABS: HEMATOCRIT 38.7 % (37.0-47.0); MCH 27.9 pg (26.0-34.0); MCHC 33.6 g/dL (28.0-37.0); MCV 83.2 fL (80.0-100.0); PLATELET COUNT 290 thou/uL (150-400); RBC 4.64 mil/uL (4.20-5.00)
[2020-04-30 16:51] LABS: CALCIUM 9.5 mg/dL (8.5-10.1); CREATININE 1.2 mg/dL (0.6-1.0); POTASSIUM 3.7 mmol/L (3.5-5.1)
[2020-04-30 16:57] LABS: ALBUMIN 3.1 g/dL (3.4-5.0); DIRECT BILIRUBIN 0.3 mg/dL (<0.1-0.2); TOTAL BILIRUBIN 0.5 mg/dL (0.2-1.0); TOTAL PROTEIN 8.8 g/dL (6.4-8.2)
[2020-04-30 17:12] LABS: ABSOLUTE NEUTROPHILS 1.1 thou/uL (1.4-8.2)
[2020-04-30 17:13] LABS: TARGET CELLS OCCASIONAL
[2020-04-30 17:14] LABS: SCHISTOCYTES OCCASIONAL
[2020-04-30 18:04] VITALS: BP 129/86
--- NOTE | 2020-04-30 18:16 | NUR ---
ULTRASOUND AT BEDSIDE FOR ABDOMINAL US
[2020-04-30 18:54] VITALS: BP 140/115
[2020-04-30 19:20] VITALS: BP 134/72
[2020-05-01 00:11] VITALS: BP 112/80
[2020-05-01 03:55] LABS: HEMATOCRIT 38.4 % (37.0-47.0); HEMOGLOBIN 12.2 gm/dL (12.0-15.0); MCH 27.9 pg (26.0-34.0); MCHC 31.9 g/dL (28.0-37.0); MCV 87.6 fL (80.0-100.0); PLATELET COUNT 269 thou/uL (150-400); RBC 4.38 mil/uL (4.20-5.00); RDW 18.1 % (10.5-14.5); WBC 4.3 thou/uL (4.0-11.0)
[2020-05-01 04:11] LABS: CALCIUM 9.2 mg/dL (8.5-10.1); CREATININE 1.1 mg/dL (0.6-1.0); MAGNESIUM 2.1 mg/dL (1.8-2.4); POTASSIUM 4.2 mmol/L (3.5-5.1)
--- NOTE | 2020-05-01 04:21 | NUR ---
ARRIVED TO ED BY CAR AND TRANSFERRED TO THE UNIT AT 1907; ADMISSION COMPLETED; VSS; SR ON THE MONITOR; C/O OF RT FLANK PAIN MANAGED WITH PRN MEDICATIONS; AOX4/STEADY GAIT TO TOILET; WILL CONTINUE TO MONITOR AND FOLLOW POC.
[2020-05-01 05:04] LABS: ABSOLUTE NEUTROPHILS 0.6 thou/uL (1.4-8.2); ANISOCYTOSIS 2+; ATYPICAL LYMPHS 2 %
[2020-05-01 05:46] VITALS: BP 109/74
[2020-05-01 08:00] VITALS: BP 110/68
[2020-05-01 11:40] VITALS: BP 121/74
[2020-05-01 12:13] LABS: DIRECT BILIRUBIN 0.2 mg/dL (<0.1-0.2); TOTAL BILIRUBIN 0.4 mg/dL (0.2-1.0); TOTAL PROTEIN 8.1 g/dL (6.4-8.2)
[2020-05-01 15:30] VITALS: BP 111/73
--- NOTE | 2020-05-01 16:41 | NUR ---
RECEIVED PT'S CARE AROUND 0720; PT. ON BED; ALERT; SR ON THE MONITOR; DURING AM ASSESSMENT PT. AOX4; C/O PAIN OVER R. SIDE FLANK; PRN PAIN MEDICATION NOT DUE UNTIL 1030; ST. UNDERSTANDING; PER PT. IV PRN PAIN MEDICATION HELPS, BUT DOES NOT LAST LONG; PHYSICIAN NOTIFIED; SUGGESTED PO PRN PAIN MEDICATION; ST. UNDERSTANDING; ORDERS ON EMAR; PT. EDUCATED ABOUT PAIN MANAGEMENT; ST. UNDERSTANDING; DURING THE AFTERNOON AROUND [address] FEELING ANXIUOS; ST. TAKING ATIVAN OR HYDROXYZINE AT HOME BUT DOES NOT REMEMBER DOSES; PHYSICIAN NOTIFIED; NO NEW ORDERS; MONITORING; EDUCATED ABOUT FALL PRECAUTIONS; ST. UNDERSTANDING; ASSESSMENT CHARGED; FOLLOWING POC; WILL PASS ON REPORT;
[2020-05-01] MEDS ORDERED: ZOLOFT100 MG PO (17:07)
[2020-05-01] MEDS ORDERED: LATUDA80 MG PO (17:08)
[2020-05-01] MEDS ORDERED: ATIVAN0.5 M1 PO (17:09)
[2020-05-01 21:00] VITALS: BP 100/68
[2020-05-02 03:59] LABS: APTT 32.9 Seconds (24.5-32.8); PROTIME 10.3 Seconds (9.3-11.4)
[2020-05-02 04:05] LABS: ALBUMIN 2.6 g/dL (3.4-5.0); CALCIUM 9.5 mg/dL (8.5-10.1); CREATININE 1.1 mg/dL (0.6-1.0); POTASSIUM 3.8 mmol/L (3.5-5.1); TOTAL BILIRUBIN 0.3 mg/dL (0.2-1.0); TOTAL PROTEIN 7.3 g/dL (6.4-8.2)
--- NOTE | 2020-05-02 04:37 | NUR ---
ASSUMED CARE AT CHANGE OF SHIFT; AOX4; STEADY ON AMBULATION TO TOILET; SR ON THE MONITOR; CONTINUES C/O OF RT FLANK PAIN MANAGED WITH PO PRN MEDICATIONS; CONTINUES NS IVF PER PROVIDER ORDER WITHOUT ISSUE; WILL CONTINUE TO MONITOR AND FOLLOW POC.
[2020-05-02 05:15] VITALS: BP 103/77
[2020-05-02 06:06] LABS: HAV IgM AB (ANTI-HAV IgM) Negative (Negative); HEPATITIS B SURFACE AG Negative (Negative); HEPATITIS C VIRUS AB <0.1 (0.0-0.9)
[2020-05-02 07:50] VITALS: BP 127/77
[2020-05-02 11:45] VITALS: BP 117/81
[2020-05-02 16:00] VITALS: BP 121/81
--- NOTE | 2020-05-02 16:42 | NUR ---
RECEIVED PT'S CARE AROUND 714; PT. ON BED RESTING WITH EYES CLOSED; SLEEP INTERRUPTED DURING SHIFT CHANGED; SR ON THE MONITOR; DURING AM ASSESSMENT PT. AOX4; C/O PAIN 07/29; NO REQUESTED PRN PAIN MEDICATION; AM MEDICATION GIVEN; THROUGH THE DAY REQUESTED PRN ANTIANXIETY MEDICATION AND PRN PAIN MEDICATION; PT. EATING AND DRINKING; PHYSICIAN NOTIFIED; SUGGESTED D/C FLUIDS; ORDERS RECEIVED; FLUIDS D/C; PT. REQUESTED TO TAKE A SHOWER DURING THE AFTERNOON; AMBULATED AROUND THE UNIT; SR ON THE MONITOR; ASSESSMENT CHARGED; FOLLOWING POC; WILL PASS ON REPORT;
[2020-05-02 19:34] VITALS: BP 119/78
[2020-05-03 03:39] VITALS: BP 142/86
--- NOTE | 2020-05-03 04:02 | NUR ---
ASSUMED CARE AT CHANGE OF SHIFT; AOX4; UP AD TONO/STEADY ON AMBULATION; SR ON THE MONITOR; PATIENT AMBULATED IN HALLWAY EARLY IN SHIFT; ON ASSESSMENT FOUND PATIENT TEARFUL WITH C/O PAIN TO THE RT FLANK THAT SHE STATES RADIATES TO THE LOWER ABD REGION; RATES PAIN 7/10 WITH ASSOCIATED NAUSEA; PRN MEDICATIONS GIVEN WITH PARTIAL PAIN RELIEF; PATIENT REQUEST ANXIETY MEDS/MEDS ADMINISTERED PER PROVIDER ORDER; PLAN IS FOR PATIENT TO REMAIN NPO AFTER MIDNOC FOR EGD TODAY WITH D/C POSSIBLE POST-PROCEDURE; WILL CONTINUE TO MONITOR AND FOLLOW POC.
[2020-05-03 08:15] VITALS: BP 146/98
--- NOTE | 2020-05-03 10:22 | NUR ---
Assess due to class III obesity, BMI 46.8. Hx hyperparathyroidism, and kidney failure. Has stomach mass and will have EGD today. Eating 50-100% of meals. Elevated LFT. Constipated, has docusate ordered. Will follow for any needed nutrition interventions following EGD. otherwise low nutrition risk
[2020-05-03 12:15] VITALS: BP 131/84
[2020-05-03 12:41] LABS: HEMATOCRIT 40.4 % (37.0-47.0); HEMOGLOBIN 13.3 gm/dL (12.0-15.0); MCH 27.1 pg (26.0-34.0); MCHC 32.9 g/dL (28.0-37.0); RBC 4.9 mil/uL (4.20-5.00); RDW 17.2 % (10.5-14.5); WBC 5.2 thou/uL (4.0-11.0)
[2020-05-03 12:43] LABS: MCV 82.4 fL (80.0-100.0)
--- NOTE | 2020-05-03 12:49 | CRIT ---
[facility] [place] [address] CRITICAL CARE NOTE Name: NELI CLINE Room #: 219-P ADM IN M.R.#: [id number] Admission: 04/30/20 Attend Phys: Jose Juan Otto MD Discharge: Date of : 89 Report #: [id number] THIS REPORT FOR: cc: FAM - No family physician/PCP FAM - No family physician/PCP Jeremiah Finney MD ~ GASTROINTESTINAL CONSULT HISTORY OF PRESENT ILLNESS: The patient is a 34-year-old female who I have been asked to see for further evaluation of elevated liver tests as well as abnormality found on CT scan between the stomach and the gallbladder fossa. She presents with persistent right flank pain and some mild epigastric pain. She was recently discharged from another care facility and presented again for significant flank pain. She denies other GI symptoms including nausea, vomiting, diarrhea, change in bowel pattern or other significant abdominal discomfort. PAST MEDICAL HISTORY: Notable for hyperparathyroidism, cholecystectomy, hypercalcemia secondary to hyperparathyroidism, kidney stones, dialysis, bipolar affective disorder, and depression. FAMILY HISTORY: Noncontributory. MEDICATIONS: At home, Ultram, Omnicef, Zoloft, Desyrel, and Latuda. REVIEW OF SYSTEMS: Negative for weight loss, weakness or fatigue. She denies head, eyes, ears, nose or throat complaints. Denies chest pain, chest palpitation, chest pressure, cough, shortness of breath, wheezing, genitourinary, musculoskeletal or neuropsychiatric complaints otherwise. PHYSICAL EXAMINATION: GENERAL: The patient is afebrile. VITAL SIGNS: Stable. Morbidly obese. HEENT: Nonicteric. NECK: No JVD, thyromegaly or bruits. CARDIOVASCULAR AND PULMONARY: Not examined. ABDOMEN: Soft, nontender, obese. No stigmata of chronic liver disease. No abnormal masses or bruits. EXTREMITIES: Not examined. NEUROLOGIC: Not performed. RECTAL: Deferred. PERTINENT LABORATORY DATA: Include normal CBC, chemistry notable for creatinine 1.1, bilirubin 0.4, total bilirubin 0.2, AST 276, ALT 254, alkaline phosphatase 384, albumin 3.0. Hepatitis A, B and C are pending. CT reveals 6 cm mass suggested arising from the distal stomach extending up into the previous region of the gallbladder. Radiographically, this was difficult to separate the liver [address] [address] CRITICAL CARE NOTE Name: NELI CLINE Room #: 219-P [facility] IN M.R.#: [id number] Admission: 04/30/20 Attend Phys: Jose Juan Otto MD Discharge: Date of : 89 Report #: [id number] and the stomach from this mass. Abdominal ultrasound revealed no specific abnormalities with a surgically absent gallbladder. ASSESSMENT AND PLAN: In summary, the patient has elevated liver tests and hepatitis workup is pending for infectious hepatitis. Other considerations include steatohepatitis as well as autoimmune hepatitis or other more rare entities. She does take a lot of Tylenol up to 3 grams or so a day for chronic pain. This could contribute to hepatic toxicity. Other medications could also cause elevated liver tests. At this point, we will proceed with an upper endoscopy and then further workup for her elevated liver tests if her upper endoscopy is normal. There is a possibility that whatever mass is being seen, which would be unlikely in a patient of this age, may be contributing to the elevated liver tests with compression. I appreciate the opportunity to participate in her care. There is no evidence of any biliary obstruction. <ELECTRONICALLY SIGNED> By: Miles Monte MD 05/03/20 1249 1345 1401 Jeremiah Finney MD /nt
[2020-05-03 12:58] LABS: ALBUMIN 3.4 g/dL (3.4-5.0); CALCIUM 10.8 mg/dL (8.5-10.1); CREATININE 1.1 mg/dL (0.6-1.0); MAGNESIUM 2.2 mg/dL (1.8-2.4); POTASSIUM 3.9 mmol/L (3.5-5.1); TOTAL BILIRUBIN 0.5 mg/dL (0.2-1.0); TOTAL PROTEIN 9.1 g/dL (6.4-8.2)
[2020-05-03 14:49] LABS: % SATURATION 13 % (20-39); IRON 71 ug/dL (50-170); TIBC 547 ug/dL (250-450)
[2020-05-03 16:05] VITALS: BP 135/80
--- NOTE | 2020-05-03 18:34 | NUR ---
ASSUMED CARE SHIFT CHANGE. ASSESSMETN CHARTED.MEDS GIVEN. VSS. C/O FLANK PAIN MANAGED WITH PO AND IV PAIN MEDS. PT UP ADLIB TOLERATING WELL. C/O ANXIETY RELIEF OBTAINED WITH ANTIANXIETY MEDS. EGD MOVED TO TOMORROW AM. DENIES NEEDS CURRENTLY. CONTINUING POC .WILL PASS ON REPORT TO RAS CASILLAS.
[2020-05-03 20:25] VITALS: BP 117/79
[2020-05-04 04:44] VITALS: BP 113/73
--- NOTE | 2020-05-04 05:20 | NUR ---
ASSUMED CARE AT CHANGE OF SHIFT; AOX4/STEADY ON AMBULATION; SR ON THE MONITOR; CONTINUES C/O RT FLANK PAIN MANAGED WITH PRN PAIN MEDICATIONS; VSS; NPO AFTER MIDNOC FOR EGD PROCEDURE; COVID -TIVE PER 05/03 LAB RESULT; SLEPT QUIETLY MOST OF THE NOC; WILL CONTINUE TO MONITOR AND FOLLOW POC.
[2020-05-04 05:39] LABS: ALBUMIN 3.2 g/dL (3.4-5.0); CALCIUM 11.4 mg/dL (8.5-10.1); CREATININE 1.1 mg/dL (0.6-1.0); POTASSIUM 4.3 mmol/L (3.5-5.1); TOTAL BILIRUBIN 0.3 mg/dL (0.2-1.0)
[2020-05-04 08:25] VITALS: BP 120/74
--- NOTE | 2020-05-04 10:43 | NUR ---
MET WITH PATIENT SHE IS TO HAVE EGD TODAY THEN POSSIBLY DC. PATIENT REPORTS SHE IS IN A [facility] "[facility]." SHE REPORTS PLAN TO RETURN TO [facility] AT DISCHARGE. SHE BELIEVES THEY WILL BE AVAIL TO TRANSPORT HER. SHE HAS CALLED [facility] AND LEFT MESSAGE. PATIENT INDEPENDENT WITH ADLS. SHE HAS HEALTH INSURANCE. UPDATED RM
--- NOTE | 2020-05-04 11:45 | NUR ---
DISCHARGING AFTER EGD. NPO SINCE 0000. MEDICATED FOR RIGHT FLANK PAIN ORDERED.
[2020-05-04 12:07] LABS: CA 125 31.2 U/mL (0.0-38.1); IgG 1739 mg/dL (586-1602)
[2020-05-04 13:30] VITALS: BP 131/83
[2020-05-04 15:20] VITALS: BP 121/85
[2020-05-04] MEDS ORDERED: CEFUROXIME250 MG PO (15:34)
[2020-05-04] MEDS ORDERED: FOSAMAX 70 MG T70 MG PO (15:34)
[2020-05-04] MEDS ORDERED: COLACE 100 MG100 MG PO (15:34)
[2020-05-04] MEDS ORDERED: PROTONIX 20 MG20 M1 PO (15:34)
[2020-05-04] MEDS ORDERED: OXYCODONE HCL 55 MG PO (15:34)
[2020-05-04 17:25] VITALS: BP 131/83
[2020-05-05 06:06] LABS: CERULOPLASMIN 48.4 mg/dL (19.0-39.0)
[2020-05-05 14:08] LABS: ANA INTERPRETATION Positive (Negative)
[2020-05-06 15:08] LABS: CEA 2.1 ng/mL (0.0-4.7)
== END 2020-05-04 18:09 | disposition home or self-care (01) | DRG 392 ==
LOC: ER 15:48 → 2N 17:49 → EROBS 17:49 → 2N 19:00
PROVIDERS: Emergency Medicine; Nurse Practitioner; Physician Assistant; ADMIT Internal Medicine; ATTEND Internal Medicine
PROC: 0DB68ZX Excision of Stomach, Via Natural or Artificial Opening Endoscopic, Diagnostic (ICD-10-PCS; principal; 2020-05-04)
DX: K29.70 Gastritis, unspecified, without bleeding (principal); N30.01 Acute cystitis with hematuria; N17.9 Acute kidney failure, unspecified; E46 Unspecified protein-calorie malnutrition; Z68.42 Body mass index [BMI] 45.0-49.9, adult; F41.9 Anxiety disorder, unspecified; F31.9 Bipolar disorder, unspecified; N23 Unspecified renal colic; F17.210 Nicotine dependence, cigarettes, uncomplicated; F19.10 Other psychoactive substance abuse, uncomplicated; E66.01 Morbid (severe) obesity due to excess calories; E83.52 Hypercalcemia; Z20.822 Contact with and (suspected) exposure to COVID-19; Z87.442 Personal history of urinary calculi; Z90.49 Acquired absence of other specified parts of digestive tract
CPT/HCPCS: 10081; 10194; 62110; 62900; 70005

== ENCOUNTER 2020-05-08 19:17 | Emergency (ER) | payer OTHER ==
[~2020-05-08] VITALS: Ht 162.6 cm; Wt 122.5 kg
[~2020-05-08 19:17] MED LIST changes: +ATIVAN0.5 M1 PO; +CEFDINIR300 MG PO; +CEFUROXIME250 MG PO; +COLACE 100 MG100 MG PO; +FOSAMAX 70 MG T70 MG PO; +OXYCODONE HCL 55 MG PO; +PROTONIX 20 MG20 M1 PO; +TRAMADOL 50 MG50 MG PO
[2020-05-08 19:20] VITALS: BP 168/94
[2020-05-08 20:24] LABS: HEMATOCRIT 37.6 % (37.0-47.0); HEMOGLOBIN 12.6 gm/dL (12.0-15.0); MCH 27.9 pg (26.0-34.0); MCHC 33.6 g/dL (28.0-37.0); PLATELET COUNT 333 thou/uL (150-400); RBC 4.53 mil/uL (4.20-5.00); WBC 5.5 thou/uL (4.0-11.0)
[2020-05-08 20:32] LABS: CALCIUM 10.2 mg/dL (8.5-10.1); POTASSIUM 4.3 mmol/L (3.5-5.1)
[2020-05-08 20:39] LABS: ALBUMIN 3.4 g/dL (3.4-5.0); TOTAL BILIRUBIN 0.4 mg/dL (0.2-1.0); TOTAL PROTEIN 8.5 g/dL (6.4-8.2)
[2020-05-08] MEDS ORDERED: ZOFRAN ODT4 MG PO (20:43)
[2020-05-08] MEDS ORDERED: ULTRAM 50MG TAB50 MG PO (20:43)
[2020-05-08 20:49] LABS: ABSOLUTE NEUTROPHILS 1.8 thou/uL (1.4-8.2); ATYPICAL LYMPHS 1 %
[2020-05-08 20:50] LABS: ANISOCYTOSIS 1+
== END 2020-05-08 21:30 | disposition home or self-care (01) ==
LOC: ER 19:17
PROVIDERS: Emergency Medicine
DX: R10.9 Unspecified abdominal pain (principal); F17.210 Nicotine dependence, cigarettes, uncomplicated; Z90.49 Acquired absence of other specified parts of digestive tract; Z90.89 Acquired absence of other organs; Z79.899 Other long term (current) drug therapy

== ENCOUNTER 2020-07-02 19:23 | Emergency (ER) | payer OTHER ==
[~2020-07-02] VITALS: Ht 167.6 cm; Wt 140.6 kg
[~2020-07-02 19:23] MED LIST changes: +ULTRAM 50MG TAB50 MG PO
[2020-07-02 19:55] LABS: URINE BILIRUBIN NEGATIVE (Negative); URINE BLOOD TRACE (Negative); URINE CLARITY CLEAR; URINE COLOR YELLOW; URINE GLUCOSE-RANDOM* NEGATIVE (Negative); URINE KETONES NEGATIVE (Negative); URINE NITRITE-REFLEX NEGATIVE (Negative); URINE PROTEIN (DIPSTICK) NEGATIVE (Negative); URINE SPECIFIC GRAVITY 1.025 (1.005-1.035); URINE UROBILINOGEN 0.2 E.U./dl (0.2-1.0)
[2020-07-02 19:57] LABS: URINE LEUKOCYTES-REFLEX 1+ (Negative)
[2020-07-02 20:01] LABS: SQUAMOUS 0-3 Few /LPF (0-3); URINE RBC 3-10 Few /HPF (NONE SEEN); URINE WBC-REFLEX 6-15 Few /HPF (0-5)
[2020-07-02 20:02] LABS: CASTS None Seen /LPF (None Seen); CRYSTALS None Seen /LPF (None Seen)
[2020-07-02] MEDS ORDERED: XANAX 1 MG TABLE1 MG PO (20:40)
[2020-07-02] MEDS ORDERED: MACROBID 100 M100 M1 PO (20:40)
[2020-07-02 20:57] VITALS: BP 123/74
== END 2020-07-02 20:58 | disposition home or self-care (01) ==
LOC: ER 19:23
PROVIDERS: Emergency Medicine
DX: N39.0 Urinary tract infection, site not specified (principal); F41.9 Anxiety disorder, unspecified; F31.9 Bipolar disorder, unspecified; F17.210 Nicotine dependence, cigarettes, uncomplicated; Z87.442 Personal history of urinary calculi; Z90.49 Acquired absence of other specified parts of digestive tract; Z90.89 Acquired absence of other organs; Z79.899 Other long term (current) drug therapy; Z79.2 Long term (current) use of antibiotics